=== PATIENT | male | born 1930 | race Caucasian/White ===

== ENCOUNTER → 2016-11-21 | Outpatient (CLI) | payer MEDICARE, BC ==
[~2016-11-21] MED LIST: ALLOPURINOL300 MG PO; ANTIVERT 25MG25 MG PO; ASPIR-LOW81 MG PO; ASPIRIN E.C. 8181 MG PO; BETAPACE 80MG80 MG PO; CENTRUM SILVER CHEW PO; CENTRUM SILVER1 CTB PO; CENTRUM SILVER1 TA1 PO; CEPHALEXIN500 M1; CEPHALEXIN500 M1 PO; CLOPIDOGREL PO; COLACE 100100 MG/CAP PO; CORDARONE200 MG/TAB PO; CRESTOR20 MG PO; DARVOCET-N-101 UDTAB PO; ELIQUIS 2.5 PO; ELIQUIS 5MG PO; FLOMAX 0.40.4 MG/CAP PO; GAS RELIEF80 MG PO; HYDROCHLOROTHIAZIDE PO; INDOMETHACIN50 M1 PO; KLOR-CON M2020 MEQ PO; LASIX 20MG TABL20 MG PO; LIPITOR 80MG80 MG PO; LOPRESSOR 225 MG/TAB PO; LUTEIN20 MG PO; MASON NATURAL L20 MG PO; MULTIPLE VITAMI1 CAP PO; NITROSTAT0.4 MG/TAB SL; PACERONE200 MG PO; PLAVIX 75MG TAB75 MG PO; PRILOSEC 20MG20 MG PO; RANITIDINE300 MG PO; ROBITUSSIN DM 105 ML PO; SSD25 GM TP; TRIAMTERENE PO; TRIAMTERENE W/H1 TA1 PO; TYLENOL 325MG325 MG PO; ULTRAM50 MG PO; XANAX 0.5MG0.5 MG PO; ZESTRIL 5MG5 MG PO; ZETIA10 MG PO; ZYLOPRIM 300MG300 MG PO
== END ==
LOC: COL.RAD 11:13
DX: M25.512 Pain in left shoulder (principal)
CPT/HCPCS: J3301; Q9967

== ENCOUNTER → 2017-06-09 | Outpatient (CLI) | payer MEDICARE, BC ==
[~2017-06-09] MED LIST changes: +ALMACONE 360 M360 ML PO; +FISH OIL 1000MG1 CAP PO; +GOOD NEIGH1200 MG/15; +LASIX 40MG TABL40 MG PO; +LUTEIN20 M1 PO; -MASON NATURAL L20 MG PO; +MUCINEX 60600 MG/TA1 PO; +MULTAQ400 MG PO; +ROBITUSSIN100 MG/5 M PO; +TYLENOL SU650 MG/SUP RC; +ZOFRAN 4MG T4 MG/TAB PO
== END ==
LOC: COL.RAD 10:09
DX: S36.62XA Contusion of rectum, initial encounter (principal); I71.4 Abdominal aortic aneurysm, without rupture; I72.3 Aneurysm of iliac artery; R05 Cough

== ENCOUNTER → 2018-11-01 | Outpatient (CLI) | payer MEDICARE, BC ==
[2018-11-01 16:30] LABS: COLLECTION METHOD CLEAN CATCH
[2018-11-01 16:39] LABS: MUCOUS Present /lpf; PH 5 (5-8); SQUAMOUS EPITHELIAL 0-2 /hpf; URINE APPEARANCE Clear; URINE BACTERIA None Seen /hpf; URINE BILIRUBIN Negative (NEGATIVE); URINE BLOOD Negative (NEGATIVE); URINE COLOR Yellow; URINE GLUCOSE Negative (NEGATIVE); URINE KETONE Trace (NEGATIVE); URINE LEUKOCYTE ESTERASE Negative (NEGATIVE); URINE NITRATE Negative (NEGATIVE); URINE PROTEIN(semi-quant) Negative (NEGATIVE); URINE WBC 0-2 /hpf
[2018-11-01 17:08] LABS: TROPONIN-I < 0.012 ng/mL (0.000-0.035)
== END ==
LOC: ZCOL.LAB 16:08
PROVIDERS: Emergency Medicine
DX: I50.21 Acute systolic (congestive) heart failure (principal); R48.8 Other symbolic dysfunctions; R48.1 Agnosia; R30.0 Dysuria